=== PATIENT | female | born 1985 | race Caucasian/White ===

== ENCOUNTER 2016-12-02 06:27 | Inpatient (IN) | payer MEDICAID ==
[~2016-12-02] VITALS: Ht 165.1 cm; Wt 97.3 kg
[2016-12-02] MEDS ORDERED: FOLI0.4T2 PO (06:37)
[2016-12-02] MEDS ORDERED: PRENAT PO (06:37)
[2016-12-02] MEDS ORDERED: CITRACAL PO (06:37)
[2016-12-02 06:54] LABS: URINE BLOOD (Dip) POC Trace-lysed (NEGATIVE)
[2016-12-02 07:06] VITALS: BP 112/56; PULSE 77; RESP 18; Ht 165.1 cm; Wt 97.3 kg
[2016-12-02] MEDS ORDERED: SOD CHLORIDE 0.9% 1,000 ML IV SCH ×2 (07:30→09:47)
[2016-12-02] MEDS ORDERED: CEFTRIAXONE 2 GM INJ IM ONE (07:30)
[2016-12-02 08:00] LABS: ADD UMIC YES; UR ASCORBIC ACID NEGATIVE (NEGATIVE); UR BACTERIA FEW /HPF (NONE SEEN); UR BILIRUBIN (Dip) NEGATIVE (NEGATIVE); UR BLOOD (Dip) NEGATIVE (NEGATIVE); UR CLARITY CLOUDY (CLEAR); UR COLOR YELLOW (YELLOW); UR GLUCOSE (Dip) NEGATIVE (NEGATIVE); UR KETONES (Dip) NEGATIVE (NEGATIVE); UR LEUKOCYTE ESTERASE (Dip) 3+ Leu/ul (NEGATIVE); UR NITRITE (Dip) NEGATIVE (NEGATIVE); UR RBC 7 /HPF (0-5); UR SPECIFIC GRAVITY (Dip) 1.004 (1.003-1.030); UR SQUAMOUS EPITHELIAL CELL MODERATE /HPF (FEW); UR TOTAL PROTEIN (Dip) NEGATIVE (NEGATIVE); UR UROBILINOGEN (Dip) NEGATIVE (NEGATIVE)
[2016-12-02] MEDS ORDERED: CEFTRIAXONE 2 GM/50 ML (PMX) 50 ML IVPB ONE (08:00)
--- NOTE | 2016-12-02 08:43 | RADRPT ---
PROCEDURE: OB ultrasound for biophysical profile CLINICAL INDICATION: Biophysical profile. . TECHNIQUE: Obstetrical ultrasound for biophysical profile. Transabdominal views are obtained. COMPARISON: None FINDINGS: Single intrauterine gestation. Presentation: Cephalic. Placenta: Posterior No evidence of placental abruption. No evidence of placenta previa. breathing movement = 2/2 tone = 2/2 motion = 2/2 NATALIE = 2/2 NATALIE = 10.7 cm heart rate: 135 beats per minute IMPRESSION: Single intrauterine gestation. Biophysical profile 12/19 RPTAT: AADD .Jona Simpson MD, MD Date Time Electronically viewed and signed by .Jona Simpson MD, on 12/02/2016 08:43 .B/
[2016-12-02] MEDS ORDERED: BETAMET NA PHOS/AC(6 MG/ML) 5ML INJ IM STA (09:10)
--- NOTE | 2016-12-02 09:10 | RADRPT ---
PROCEDURE: Limited OB ultrasound. CLINICAL INDICATION: labor TECHNIQUE: Sonographic evaluation to assess cervical length was performed. Transabdominal imaging of the gravid uterus was performed. COMPARISON: 12/02/2016 FINDINGS: Single live intrauterine with cardiac activity is identified. The cervical length e quals 0.6 cm. Cephalic presentation. Heart rate 146 beats per minute. Posterior grade 2 placenta. IMPRESSION: 1. Shortening of cervical length measuring 0.6 cm. RPTAT: EE .Benitez Farmer MD, Date Time Electronically viewed and signed by .Benitez Farmer MD, on 12/02/2016 09:10 .L/
[2016-12-02] MEDS ORDERED: MAGNESIUM SULFATE 4 GM/100 ML 100 ML ONE (09:18)
[2016-12-02] MEDS ORDERED: CA GLUCONATE (GM) 10% 10ML INJ IV PRN (09:30)
[2016-12-02] MEDS ORDERED: MAGNESIUM SULFATE 4 GM/100 ML 100 ML IV SCH (09:30)
[2016-12-02] MEDS: MAGNESIUM SULFATE 20 GM/500 ML 500 ML IV SCH ×2 (10:14→20:07)
[2016-12-02] MEDS: LACTATED RINGER'S 1,000 ML IV SCH (10:26)
--- NOTE | 2016-12-02 11:50 | TRIAGE ---
OB Triage Datetime Report Generated by CPN: 12/02/2016 11:50 Datetime: 12/02/2016 11:07 Labor Evaluation Frequency: 3-10 Monitor Mode: External Duration (sec)2399: 40-60 Quality: Mild Pattern: Normal: <= 5 Contractions in 10 Minutes Resting Tone Richardson: Relaxed Heart Rate FHR Baseline Rate: 135 Monitor Mode: External US FHR Baseline Changes: No Baseline Change Variability: Moderate 6-25 bpm Accelerations: 15X15 Decelerations: None Category: Category I Datetime: 12/02/2016 10:32 Labor Evaluation Frequency: 2.5--7 Monitor Mode: External Duration (sec)2399: 40-70 Quality: Mild Pattern: Normal: <= 5 Contractions in 10 Minutes Resting Tone Richardson: Relaxed Heart Rate FHR Baseline Rate: 135 Monitor Mode: External US FHR Baseline Changes: No Baseline Change Variability: Moderate 6-25 bpm Accelerations: 15X15 Decelerations: None Datetime: 12/02/2016 10:00 Labor Evaluation Frequency: 3-6 Monitor Mode: External Duration (sec)2399: 40-60 Quality: Mild Pattern: Normal: <= 5 Contractions in 10 Minutes Resting Tone Richardson: Relaxed Heart Rate FHR Baseline Rate: 135 Monitor Mode: External US FHR Baseline Changes: No Baseline Change Variability: Moderate 6-25 bpm Accelerations: 15X15 Decelerations: None Category: Category I Datetime: 12/02/2016 09:01 Labor Evaluation Frequency: 3-5 Monitor Mode: External Duration (sec)2399: 60-80 Quality: Mild Pattern: Normal: <= 5 Contractions in 10 Minutes Resting Tone Richardson: Relaxed Heart Rate FHR Baseline Rate: 135 Monitor Mode: External US FHR Baseline Changes: No Baseline Change Variability: Minimal - Undetectable to <=5 bpm Accelerations: 10X10 Decelerations: None Pain Assessment Pain Scale: 6 Pain Presence: Intermittent Pain Type: Contraction Pain Location: Abdomen Datetime: 12/02/2016 08:52 Assessment Type: Triage Datetime: 12/02/2016 08:39 Monitor Mode: External US Comments: U/S CHANGED TO NEW MONITOR PART. Datetime: 12/02/2016 08:31 Monitor Mode: External US Datetime: 12/02/2016 08:27 Monitor Mode: External Monitor Mode: External US Datetime: 12/02/2016 08:01 Labor Evaluation Frequency: 3-7 Monitor Mode: External Duration (sec)2399: 50-80 Quality: Mild Pattern: Normal: <= 5 Contractions in 10 Minutes Resting Tone Richardson: Relaxed Heart Rate FHR Baseline Rate: 135 Monitor Mode: External US FHR Baseline Changes: No Baseline Change Variability: Moderate 6-25 bpm Accelerations: 15X15 Decelerations: None Datetime: 12/02/2016 07:43 Headache: Denies Blurred Vision: No RUQ Epigastric Pain: Denies Facial Edema: None Monitor Mode: External US Pain Assessment Pain Scale: 6 Pain Presence: Intermittent Pain Type: Contraction Pain Location: Abdomen Datetime: 12/02/2016 07:12 Stage of : OB Triage Datetime: 12/02/2016 07:05 Assessment Type: Triage Datetime: 12/02/2016 07:00 Labor Evaluation Frequency: 4-5 Monitor Mode: External Duration (sec)2399: 50-70 Quality: Mild Pattern: Normal: <= 5 Contractions in 10 Minutes Heart Rate FHR Baseline Rate: 135 Monitor Mode: External US FHR Baseline Changes: No Baseline Change Variability: Moderate 6-25 bpm Accelerations: 15X15 Decelerations: None Category: Category I Pain Assessment Pain Scale: 4 Pain Presence: Intermittent Pain Type: Cramping Pain Location: Abdomen Pain Goal: 3 Pain Relief Measures: Comfort Measures Datetime: 12/02/2016 06:46 Assessment Type: Triage Maternal Assessment Level of Consciousness: Fully Conscious DTR's/Clonus: DTRs 2+; No Clonus Headache: Denies Blurred Vision: No Respiratory Effort: Unlabored; Regular Rhythm; Equal Expansion Breath Sounds, Left: Clear and Equal Breath Sounds, Right: Clear and Equal Nausea/Vomiting: Denies RUQ Epigastric Pain: Denies Lower Extremities Edema: Bilateral Lower Extremities Degree: 1+ Upper Extremities Edema: None Degree: None Facial Edema: None Fall Risk Assessment History of Falling: (0) No Secondary Diagnosis: (0) No Ambulatory Aid: (0) Bedrest/Nurse Assist IV Therapy: (0) No Gait: (0) Normal/Bedrest/Immobile Mental Status: (0) Oriented to Own Ability Fall Score: 0 Fall Risk Score Definition: No Risk: No action required Datetime: 12/02/2016 06:33 Time of Arrival: 12/02/2016 06:17 EGA: 32.4 Arrived By: Wheelchair Arrived From: Home Chief Complaint: Cramping radiating to waist Movement: Present Contractions: Regular Time Contractions Began: 12/02/2016 03:30 Contractions: Q10MIN Rupture of Membranes: Denies Vaginal Bleeding: None Recent Sexual Intercouse: Denies Abdominal Trauma: Not Applicable Patient Complaints: Cramping (Annotations: Data stored by CPN on behalf of user) Time Provider Notified: 12/02/2016 07:12 Provider Notified: DR. XIONG Initial Plan: EFM X2, U/A, URINE C_S, BPP, CERVICAL LENGTH, IV HYDRATION; ROCEPHIN, 2GM, IVPB
--- NOTE | 2016-12-02 11:59 | PN ---
Triage Information Date/Time Dec 02, 2016 at 10:28 Weeks of Gestation 32 weeks 4/7 days : 3 Para: 1 Additional information Seen in triage unit for uterine contraction requires. evaluation and assessment which includes biophysical profile cervical length IV hydration steroids to enhance lung maturity, until labor is ruled out Objective Vital Signs Date Time Temp Pulse Resp B/P Pulse Ox O2 Delivery O2 Flow Rate FiO2 12/02/16 07:06 97.6 77 18 112/56 Room Air Heart Rate: 130's Contractions: 6-10 Minutes Apart Results/Medications Results 24 hrs Laboratory Tests Test 12/02/16 06:30 12/02/16 06:59 Urine Color YELLOW Urine Clarity CLOUDY A Urine pH 8.0 Urine Specific [place] 1.004 Urine Ketones NEGATIVE Urine Nitrite NEGATIVE Urine Bilirubin NEGATIVE Urine Urobilinogen NEGATIVE Urine Leukocyte Esterase 3+ H Urine Microscopic RBC 7 H Urine Microscopic WBC 7 H Urine Squamous Epithelial Cells MODERATE Urine Bacteria FEW A Urine Hemoglobin NEGATIVE Urine Glucose NEGATIVE Urine Total Protein NEGATIVE Bedside Urine pH (LAB) 6.0 Bedside Urine Protein (LAB) Negative Bedside Urine Glucose (UA) Negative Bedside Urine Ketones (LAB) Negative Bedside Urine Blood Trace-lysed H Bedside Urine Nitrite (LAB) Negative Bedside Urine Leukocyte Esterase (L 3+ H Medications Current Medications Betamethasone Acet/Betameth SodPhos 12 mg 12 mg ONCE ONCE IM ; Start 12/03/16 at 09:15; Stop 12/03/16 at 09:16 Magnesium Sulfate (Magnesium Sulfate 20 Gm/500 ml) 500 ml @ 50 mls/hr Q10H IV Last administered on 12/02/16 10:14; Admin Dose 50 MLS/HR; Start 12/02/16 at 09 :30 Calcium Gluconate (Ca Gluc) 1 gm ONCE PRN IV FOR MAGNESIUM TOXICITY; Start 12/02 at 09:30 Prenat Multivit/ [place]/Iron/Folic Ac () 1 tab DAILY PO ; Start 12/03/16 at 09:00 Acetaminophen 650 mg 650 mg Q4H PRN PO PAIN AND OR ELEVATED TEMP; Start at 10:00 Ampicillin 100 ml @ 100 mls/hr Q6 IVPB ; Start 12/03/16 at 06:00 Lactated Ringer's (Lr) 1,000 ml @ 0 mls/hr Q0M IV Last administered on 10:26; Admin Dose 75 MLS/HR; Start 12/02/16 at 10:10 IVELISSE XIONG MD Dec 02, 2016 11:59
--- NOTE | 2016-12-02 12:18 | HP ---
Date/Time of Note Date/Time of Note DATE: 12/02/16 TIME: 11:59 OB - History Hx of Present Free Text/Dictation This is a 31 years old female 32 weeks and 4/7 days EDC January 23, 2017 0010 admitted to the hospital with chief complaint of uterine contraction transferred from triage to the antepartum unit was placed on magnesium sulfate received steroids to enhance baby's lung maturation, her last she delivered at 38 weeks Chief Complaint: 32 weeks and 4 days uterine contraction Estimated Due Date: Jan 23, 2017 : 3 Para: 1 Therapeutic : 1 Care: Good Care Ultrasounds: Normal mid trimester US Obstetrical Complications: None Medical Complications: None Past Family/Social History * Past Medical, Surgical, Family and Obstetric Histories reviewed from chart. Rubella: immune RPR/VDRL: Negative GBS Status: Negative HBsAG: Negative OB Admission Exam Vital Signs Vital Signs Vital Signs Date Time Temp Pulse Resp B/P Pulse Ox O2 Delivery O2 Flow Rate FiO2 12/02/16 07:06 97.6 77 18 112/56 Room Air Physical Exam HEENT: WNL Heart: Rhythm Normal Lungs: Clear, Equal Cervical Dilatation: None Membranes: Intact Heart Rate: 130's Accelerations: Accelerations Present Decelerations: No Decelerations Varibility: Moderate Contractions on Admission: >10 Minutes Apart Intensity: Moderate OB Assessment/Plan Reason for admission: other (Observation, evaluation for labor) Induction Method: other (Presently she is on magnesium sulfate until she receives 2 doses of steroids then magnesium sulfate will discontinue she will be placed on Procardia) IVELISSE XIONG MD Dec 02, 2016 12:12
[2016-12-02 12:28] LABS: BASOPHILS % 0.2 % (0.0-2.0); EOSINOPHILS % 0.2 % (0.0-7.0); HEMATOCRIT 32.8 % (37.0-47.0); HEMOGLOBIN 11.3 g/dl (12.0-16.0); LYMPHOCYTES # 1.2 10^3/ul (0.8-2.9); MEAN CORPUSCULAR HEMOGLOBIN 29.9 pg (29.0-33.0); MEAN CORPUSCULAR HGB CONC 34.5 g/dl (32.0-37.0); MEAN CORPUSCULAR VOLUME 86.8 fl (82.0-101.0); MEAN PLATELET VOLUME 9.5 fl (7.4-10.4); MONOCYTE # 0.3 10^3/ul (0.3-0.9); MONOCYTES % 2.7 % (0.0-11.0); NEUTROPHIL # 7.7 10^3/ul (1.6-7.5); NEUTROPHILS % 82.9 % (39.0-77.0); PLATELET COUNT 226 10^3/UL (140-415); RED BLOOD COUNT 3.78 10^6/ul (4.20-5.40); RED CELL DISTRIBUTION WIDTH 14.7 % (11.5-14.5); WHITE BLOOD COUNT 9.3 10^3/ul (4.8-10.8)
[2016-12-02 12:36] LABS: PT RATIO 1.1
[2016-12-02 12:37] LABS: PARTIAL THROMBOPLASTIN TIME 28.2 Sec (25.0-35.0)
[2016-12-02 12:40] LABS: ALANINE AMINOTRANSFERASE 28 IU/L (13-69); ALBUMIN 3.5 g/dl (3.3-4.9); ALBUMIN/GLOBULIN RATIO 1.16; ALKALINE PHOSPHATASE 100 IU/L (42-121); ANION GAP 17 (8-16); ASPARTATE AMINO TRANSFERASE 20 IU/L (15-46); CARBON DIOXIDE 24 mmol/L (21-31); CHLORIDE 104 mmol/L (97-110); CREATININE 0.47 mg/dl (0.44-1.00); GLUCOSE 98 mg/dl (70-220); SODIUM 142 mmol/L (135-144); TOTAL PROTEIN 6.5 g/dl (6.1-8.1); URIC ACID 3.4 mg/dl (3.1-7.9)
[2016-12-02 12:46] LABS: BLOOD UREA NITROGEN < 2 mg/dl (7-20); POTASSIUM 2.8 mmol/L (3.5-5.1)
[2016-12-02 12:47] LABS: INR 1.07
[2016-12-02] MEDS: POTASSIUM CHLORIDE 20 MEQ in LACTATED RINGER'S 990 ML IV SCH (14:24)
[2016-12-03] MEDS: POTASSIUM CHLORIDE 20 MEQ in LACTATED RINGER'S 990 ML IV SCH ×3 (03:05→20:36)
[2016-12-03] MEDS: AMPICILLIN 2 GM/NS (PMX) 100 ML IVPB SCH ×4 (05:52→23:24)
[2016-12-03] MEDS: ACETAMINOPHEN 325 MG TAB PO PRN ×2 (05:56→09:02)
[2016-12-03] MEDS: MAGNESIUM SULFATE 20 GM/500 ML 500 ML IV SCH ×2 (06:02→16:03)
[2016-12-03] MEDS: PRENATAL VITAMIN PO SCH (09:02)
[2016-12-03] MEDS ORDERED: BETAMET NA PHOS/AC(6 MG/ML) 5ML INJ IM ONE (09:15)
[2016-12-03] MEDS ORDERED: POTASSIUM CHLORIDE 250 ML IVPB ONE (10:30)
[2016-12-03] MEDS ORDERED: POTASSIUM CHLORIDE (SR) 20 MEQ TAB PO SCH (21:00)
[2016-12-04] MEDS: MAGNESIUM SULFATE 20 GM/500 ML 500 ML IV SCH (04:38)
[2016-12-04] MEDS: AMPICILLIN 2 GM/NS (PMX) 100 ML IVPB SCH ×3 (05:39→18:18)
[2016-12-04] MEDS: PRENATAL VITAMIN PO SCH (09:17)
[2016-12-04] MEDS: LACTATED RINGER'S 1,000 ML IV SCH ×2 (10:10→18:10)
--- NOTE | 2016-12-04 10:22 | PN ---
Date/Time of Note Date/Time of Note DATE: 12/04/16 TIME: 10:18 OB Subjective Subjective Subjective She is resting in bed denies contractions magnesium sulfate discontinued and replaced with Procardia 20 mg every 6 hours with continue observing her response to Procardia. IVELISSE XIONG MD Dec 04, 2016 10:22
[2016-12-04] MEDS ORDERED: POTASSIUM CHLORIDE 40 MEQ in SOD CHLORIDE 0.45% 980 ML IV ONE (11:30)
--- NOTE | 2016-12-04 11:31 | RADRPT ---
PROCEDURE: US OB. CLINICAL INDICATION: Size and dates , labor TECHNIQUE: Multiple sonographic images of the pelvis and gravid uterus were obtained. The images were reviewed on a PACS workstation. COMPARISON: 12/02/2016 FINDINGS: There is a single viable intrauterine gestation. Cardiac activity is present with 146 beats per min andrzej. There is a vertex presentation. The placenta is posterior. There is no evidence for an abruption or placenta previa. Measurements were made in order to determine age. The results are as follows: BPD =8.0 cm HC =29.4 cm AC =29.7 cm FL =6.3 cm Estimated gestational age of approximately 32 weeks and 5 days based on ultrasound measurements. Clinical age: 32 weeks and 6 days. The estimated date of delivery is 01/24/2017, based on ultrasound measurements. The EFW = 2096 g, 44.8%, based on LMP age. RPTAT: AA IMPRESSION: Single viable intrauterine gestation of approximately 32 weeks and 5 days based on ultrasound measu rements. .Ming Manzano MD, MD Date Time Electronically viewed and signed by .Ming Manzano MD, on 12/04/2016 11:31 .S/
[2016-12-04] MEDS: NIFEdipine 10 MG CAP PO SCH ×2 (11:54→18:18)
--- NOTE | 2016-12-04 17:04 | PERINOTE ---
Date/Time of Note Date/Time of Note DATE: 12/04/16 TIME: 16:59 Assessment/Recommendations Other Assessments labor--currently resolved Suspected urinary tract infection Prior IUFD, no diagnosis available Recommendations: Would consider discharge on nifedipine with reduced activity. OB Subjective Free Text/Dictaton Patient admitted for presumed labor, treated with magnesium and betamethasone. Now on nifedipine, without complaints Patient also found to have a low potassium level, being supplemented. HD# 3 IUP @ 32W6D Current Medications Current Medications Calcium Gluconate (Ca Gluc) 1 gm ONCE PRN IV FOR MAGNESIUM TOXICITY; Start 12/02 at 09:30 Prenat Multivit/ Comb Capper/Iron/Folic Ac () 1 tab DAILY PO Last administered on 12/04/16 09:17; Admin Dose 1 TAB; Start 12/03/16 at 09:00 Acetaminophen 650 mg 650 mg Q4H PRN PO PAIN AND OR ELEVATED TEMP Last administered on 12/03/16 09:02; Admin Dose 650 MG; Start 12/02/16 at 10:00 Ampicillin 100 ml @ 100 mls/hr Q6 IVPB Last administered on 12/04/16 11:53; Admin Dose 100 MLS/HR; Start 12/03/16 at 06:00 Lactated Ringer's (Lr) 1,000 ml @ 0 mls/hr Q0M IV Last administered on 10:26; Admin Dose 75 MLS/HR; Start 12/02/16 at 10:10 Nifedipine 20 mg 20 mg Q6 PO Last administered on 12/04/16 11:54; Admin Dose 20 MG; Start 12/04/16 at 12:00 Potassium Chloride/Sodium Chloride (KCl/1/2 NS) 1,000 ml @ 100 mls/hr Q10H ONCE IV Last administered on 12/04/16 12:12; Admin Dose 100 MLS/HR; Start at 11:30; Stop 12/04/16 at 21:29 Past Medical History Medical History: no pertinent history Surgical History: no surgical history 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 Para: 1 : 3 LMP (Females 10-50): Family History Significant Family History: no pertinent family hx OB Admission Exam Physical Exam Vitals: Vital Signs Date Time Temp Pulse Resp B/P Pulse Ox O2 Delivery O2 Flow Rate FiO2 12/02/16 07:06 97.6 77 18 112/56 Room Air 12/04/16 79 106/50 Heart: Rhythm Normal Lungs: Clear Abdomen: WNL Heart Rate: 130's Accelerations: Accelerations Present Decelerations: No Decelerations Varibility: Moderate Contractions on Admission: None Last 72 hours Lab Results CBC & BMP 12/02/16 12:12 12/03/16 08:02 12/04/16 05:59 Liver Function Test 12/02/16 12:12 Alanine Aminotransferase (ALT/SGPT) 28 Albumin 3.5 Alkaline Phosphatase 100 Aspartate Amino Transf (AST/SGOT) 20 Direct Bilirubin 0.00 Total Protein 6.5 Magnesium Level Test 12/02/16 18:21 12/03/16 00:45 12/03/16 08:02 12/03/16 14:15 Magnesium Level 4.5 H 4.6 H 4.9 H 5.0 H Test 12/03/16 18:00 12/04/16 00:39 12/04/16 05:59 Magnesium Level 4.9 H 5.0 H 4.3 H Copies To: CC: IVELISSE XIONG MD, MARIE H MD Dec 04, 2016 17:04
[2016-12-05] MEDS: LACTATED RINGER'S 1,000 ML IV SCH ×2 (02:10→04:16)
[2016-12-05] MEDS: NIFEdipine 10 MG CAP PO SCH ×3 (05:51→12:01)
[2016-12-05] MEDS: AMPICILLIN 2 GM/NS (PMX) 100 ML IVPB SCH ×3 (05:51→11:59)
[2016-12-05] MEDS: PRENATAL VITAMIN PO SCH (09:02)
--- NOTE | 2016-12-05 09:49 | QN ---
Documentation Comment Today she is 33 weeks ,afebrile vital signs are stable resting in bed denies feeling any contractions her last ultrasound for cervical length 3 days ago was 0.6 cm she is currently on Procardia 20 mg every 6 hours also on antibiotic, perinatology recommended DC home with limited activity, pelvic rest follow-up at perinatology clinic in 2 days IVELISSE XIONG MD Dec 05, 2016 09:49
--- NOTE | 2016-12-05 09:53 | PDOCDIS ---
Discharge Instructions CONDITION Patient Condition: Good HOME CARE INSTRUCTIONS: Diet Instructions: Regular ACTIVITY: Activity Restrictions: Slowly Increase Activity Rest between Activity Avoid heavy lifting No Sexual Activity Do not Drive Bathing Restrictions: ShowerActivity Restrictions Comment: , Bedrest limited activity pelvic rest FOLLOW UP/APPOINTMENTS Follow-up Plan Follow-up with perinatology clinic in 2 days IVELISSE XIONG MD Dec 05, 2016 09:53
--- NOTE | 2016-12-05 10:15 | DS ---
Date/Time of Note Date/Time of Note DATE: 12/05/16 TIME: 09:57 Discharge Summary Admission/Discharge Info Admit Date/Time Dec 02, 2016 at 10:28 Discharge Date/Time December 05, 2069 at 10 am Discharge Diagnosis Short cervix Patient Condition: Good Consults Perinatologist recommended patient to be discharged home with limited activity follow-up at the perinatology clinic in 2 days Procedures Treatment for short cervix Hx of Present Illness 33 weeks short cervix Hospital Course Satisfactory, patient had no contraction no cervical change while in the hospital Home Meds Reported Medications Folic Acid* (Folic Acid*) 0.4 Mg Tablet, 0.4 MG PO DAILY, TAB 12/02/16 Calcium Citrate* (Citracal*) 950 Mg Tab, 950 MG PO DAILY, TAB 12/02/16 Multivit/Min/Fol Ac/Iron/Pren* ( S*) 1 Tab Tab, 1 TAB PO DAILY, TAB 12/02/16 Follow-up Plan Patient advised to make appointment with perinatology clinic in 2 days, follow- up with her OB clinic for followup., She was discharged with a prescription of nitro Furadantin 100 mg twice daily for 10 days recommended repeat urinalysis once the treatment is completed Primary Care Provider Not On Staff Doctor Time spent on discharge: < 30 minutes IVELISSE XIONG MD Dec 05, 2016 10:10
== END 2016-12-05 15:15 | disposition home or self-care (01) | DRG 782 ==
LOC: OBT 06:27 → L-D 06:29 → OBT 10:20 → OBG 10:28
PROVIDERS: ADMIT Obstetrics & Gynecology; ATTEND Obstetrics & Gynecology
PROC: 4A1HX4Z Monitoring of Products of Conception, Cardiac Electrical Activity, External Approach (ICD-10-PCS; principal; 2016-12-02)
DX: O26.873 Cervical shortening, third trimester (principal); Z3A.32 32 weeks gestation of pregnancy
CPT/HCPCS: 36415; 76815; 76817; 76818; 80053; 81001; 81003; 83735; 84132; 84560; 85025; 85384; 85610; 85730; 87086; 96365; 96366; 96368; 96372; 96375; G0463; J0290; J0702; J3475; J3480; J7030; J7120

== ENCOUNTER 2017-01-06 14:56 | Inpatient (IN) | payer MEDICAID ==
[~2017-01-06] VITALS: Ht 165.1 cm; Wt 100.3 kg
[~2017-01-06 14:56] MED LIST: CITRACAL PO; FOLI0.4T2 PO; PRENAT PO
[2017-01-06 15:30] VITALS: BP 115/73; PULSE 84; RESP 20
[2017-01-06 15:32] VITALS: BMI 36.8
[2017-01-06] MEDS ORDERED: LACTATED RINGER'S 1,000 ML IV SCH (15:32)
[2017-01-06] MEDS ORDERED: OXYTOCIN 30 UNITS/LR 500 ML IV PRN ×2 (16:00→21:00)
[2017-01-06] MEDS ORDERED: MISOPROSTOL 200 MCG TAB PR PRN ×2 (16:00→21:00)
[2017-01-06] MEDS ORDERED: METHYLERGONOVINE 0.2 MG INJ IM PRN ×2 (16:00→21:00)
[2017-01-06] MEDS ORDERED: LIDOCAINE 1% (MPF) 30 ML INJ INJ PRN ×2 (16:00→20:30)
[2017-01-06] MEDS ORDERED: CARBOPROST 250 MCG INJ IM PRN ×2 (16:00→21:00)
[2017-01-06 16:24] LABS: BASOPHILS % 0.1 % (0.0-2.0); EOSINOPHILS % 0.2 % (0.0-7.0); HEMATOCRIT 30.4 % (37.0-47.0); HEMOGLOBIN 10.5 g/dl (12.0-16.0); LYMPHOCYTES # 1.3 10^3/ul (0.8-2.9); LYMPHOCYTES % 13.4 % (15.0-51.0); MEAN CORPUSCULAR HGB CONC 34.5 g/dl (32.0-37.0); MEAN CORPUSCULAR VOLUME 86.9 fl (82.0-101.0); MONOCYTE # 0.6 10^3/ul (0.3-0.9); MONOCYTES % 5.8 % (0.0-11.0); NEUTROPHILS % 79.8 % (39.0-77.0); PLATELET COUNT 214 10^3/UL (140-415); RED CELL DISTRIBUTION WIDTH 15.2 % (11.5-14.5); WHITE BLOOD COUNT 9.8 10^3/ul (4.8-10.8)
[2017-01-06 16:31] VITALS: Ht 165.1 cm; Wt 100.3 kg
[2017-01-06 16:42] LABS: INR 1.05; PARTIAL THROMBOPLASTIN TIME 29.2 Sec (25.0-35.0); PROTIME 13.7 Sec (12.2-14.2); PT RATIO 1.1
[2017-01-06] MEDS ORDERED: OXYTOCIN 30 UNITS/LR 500 ML IV SCH ×3 (17:30→20:30)
[2017-01-06] MEDS ORDERED: BUTORPHANOL 2 MG INJ IV PRN (20:30)
[2017-01-06] MEDS ORDERED: HYDROCODONE/APAP (5/325) TAB PO PRN (20:30)
[2017-01-06] MEDS ORDERED: IBUPROFEN 600 MG TAB PO PRN (20:30)
[2017-01-06] MEDS: LACTATED RINGER'S 1,000 ML IV* SCH (20:55)
--- NOTE | 2017-01-06 20:55 | LDN ---
Date/Time of Note Date/Time of Note DATE: 01/06/17 TIME: 20:52 Delivery Summary Weeks of Gestation Term gestation female infant delivered Baby's 9, 9 Weight 6 lbs. 9 oz. Placenta Delivered: Spontaneously Meconium: none Episiotomy: No Laceration repair: First degree perineal laceration repaired with 2-0 Vicryl Estimated blood loss: 250 Sponge & Needle done & correct: Yes All needle counts correct: Yes Any foreign bodies felt in the: No Problems: Infant Delivery Information Sex Infant Sex: female Apgars 1 Minute: 9 5 Minute: 9 Suctioning Nose & mouth suctioned at chio: Yes Umbilical Cord Umbilical cord with: 3 Vessels Cord presentations: no nuchal cord Cord Blood was obtained: Yes Copies To: CC: IVELISSE XIONG MD, BAHAREH MD Jan 06, 2017 20:55
[2017-01-06] MEDS ORDERED: SENNA/DOCUSATE NA (8.6MG/50MG) TAB PO PRN (21:00)
[2017-01-06] MEDS ORDERED: ACETAMINOPHEN 325 MG TAB PO PRN ×2 (21:00)
[2017-01-06] MEDS ORDERED: DIBUCAINE 1% 30 GM OINT PR PRN (21:00)
[2017-01-06] MEDS ORDERED: ONDANSETRON 4 MG INJ IV PRN (21:00)
[2017-01-06] MEDS ORDERED: MAGNESIUM HYDROXIDE 30ML CUP PO PRN (21:00)
[2017-01-06] MEDS ORDERED: LANOLIN 7 GM TUBE TOP PRN (21:00)
[2017-01-06 23:25] VITALS: BP 118/59; PULSE 77; RESP 19
[2017-01-07] MEDS: OXYTOCIN 30 UNITS/LR 500 ML IV SCH ×2 (00:55→01:26)
[2017-01-07] MEDS: WITCH HAZEL/GLYCERIN PAD PR PRN (01:27)
[2017-01-07] MEDS: BENZOCAINE 20% 56 ML SPRAY TOP PRN (01:27)
[2017-01-07 04:15] VITALS: BP 92/53; PULSE 81; RESP 17
[2017-01-07] MEDS: LACTATED RINGER'S 1,000 ML IV* SCH ×3 (04:55→14:22)
[2017-01-07] MEDS: IBUPROFEN 600 MG TAB PO PRN ×2 (06:02→18:20)
[2017-01-07 07:50] VITALS: BP 117/62; PULSE 77; RESP 20
[2017-01-07 08:21] LABS: BASOPHILS % 0.2 % (0.0-2.0); EOSINOPHILS % 0.3 % (0.0-7.0); HEMATOCRIT 25.1 % (37.0-47.0); HEMOGLOBIN 8.4 g/dl (12.0-16.0); MEAN CORPUSCULAR HEMOGLOBIN 29.3 pg (29.0-33.0); MEAN CORPUSCULAR HGB CONC 33.5 g/dl (32.0-37.0); MEAN CORPUSCULAR VOLUME 87.5 fl (82.0-101.0); MEAN PLATELET VOLUME 10.2 fl (7.4-10.4); MONOCYTE # 0.6 10^3/ul (0.3-0.9); PLATELET COUNT 182 10^3/UL (140-415); RED BLOOD COUNT 2.87 10^6/ul (4.20-5.40); RED CELL DISTRIBUTION WIDTH 15.3 % (11.5-14.5); WHITE BLOOD COUNT 9.6 10^3/ul (4.8-10.8)
[2017-01-07 15:53] VITALS: BP 111/56; PULSE 87; RESP 20
--- NOTE | 2017-01-07 17:12 | QN ---
Documentation Comment ppd1 pt doing well vss exam wnl ppd1 continue care JOHN ZAVALA MD Jan 07, 2017 17:12
[2017-01-07 20:10] VITALS: BP 117/65; PULSE 92; RESP 18
[2017-01-08 04:10] VITALS: BP 118/57; PULSE 85; RESP 21
[2017-01-08] MEDS: LACTATED RINGER'S 1,000 ML IV* SCH ×2 (04:55→12:55)
[2017-01-08 08:30] VITALS: BP 119/56; PULSE 78; RESP 18
[2017-01-08 16:00] VITALS: BP 115/61; PULSE 79; RESP 18
[2017-01-08] MEDS: BENZOCAINE 20% 56 ML SPRAY TOP PRN (16:55)
[2017-01-08] MEDS: WITCH HAZEL/GLYCERIN PAD PR PRN (16:55)
[2017-01-08] MEDS: IBUPROFEN 600 MG TAB PO PRN (16:56)
--- NOTE | 2017-01-08 17:22 | DS ---
Date/Time of Note Date/Time of Note DATE: 01/08/17 TIME: 17:19 Discharge Summary Admission/Discharge Info Admit Date/Time Jan 06, 2017 at 15:20 Discharge Date/Time january 08/2017 1700 Discharge Diagnosis Patient Condition: Good Procedures Hx of Present Illness TERM Hospital Course GOOD Home Meds Reported Medications Folic Acid* (Folic Acid*) 0.4 Mg Tablet, 0.4 MG PO DAILY, TAB 12/02/16 Calcium Citrate* (Citracal*) 950 Mg Tab, 950 MG PO DAILY, TAB 12/02/16 Multivit/Min/Fol Ac/Iron/Pren* ( S*) 1 Tab Tab, 1 TAB PO DAILY, TAB 12/02/16 Follow-up Plan APPOINTMENT CLINIC IN 2 WEEKS Primary Care Provider Care Physician No Primary Time spent on discharge: < 30 minutes IVELISSE XIONG MD Jan 08, 2017 17:22
--- NOTE | 2017-01-08 17:25 | QN ---
Documentation Comment CIRCUMCISION ,PERFORMED WITH GAMCO1.1,NO BLEEDING ,INSTRUCTION GIVEN TO THE MOTHER IVELISSE XIONG MD Jan 08, 2017 17:25
== END 2017-01-08 18:22 | disposition home or self-care (01) | DRG 775 ==
LOC: OBT 14:56 → L-D 14:56 → OBT 15:20 → L-D 15:20 → PP1 23:15
PROVIDERS: ADMIT Obstetrics & Gynecology; ATTEND Obstetrics & Gynecology
PROC: 10E0XZZ Delivery of Products of Conception, External Approach (ICD-10-PCS; principal; 2017-01-06)
PROC: 0HQ9XZZ Repair Perineum Skin, External Approach (ICD-10-PCS; 2017-01-06)
DX: O70.0 First degree perineal laceration during delivery (principal); Z37.0 Single live birth; Z3A.37 37 weeks gestation of pregnancy
CPT/HCPCS: 85025; 85610; 85730; 86592; 86900; 86901; 87340; G0463; J2590; J7120